=== PATIENT | male | born 1990 | race Caucasian/White ===

== ENCOUNTER 2020-05-07 17:04 | Emergency (ER) | payer BC ==
[2020-05-07 17:11] VITALS: BP 130/87
[2020-05-07] MEDS ORDERED: LIDOCAINE 2% VISCOUS SOLN 15 ML UDCUP PO ONE (17:48)
[2020-05-07] MEDS ORDERED: KETOROLAC TROMETHAMINE 60 MG/2 ML SDV IM ONE (17:48)
--- NOTE | 2020-05-07 17:54 | ER Document Report ---
HPI - HPI Patient complains to provider of: Toothache Time Seen by Provider: 05/07/20 17:40 Pain Level: 3 Notes: 30-year-old male to the emergency department with complaints of posterior right molar tooth ache that began this morning and has not been relieved. He states that he had pain in his tooth last week as well after he broke it. He states that he had made a dentist appointment in [place] where he technically lives but had to come down here for work so he did not go. He states he was not really having any pain earlier in the week and so he was not concerned. However when he woke this morning and had pain it was really uncomfortable. He states that it radiates into his right ear and into the head. He states he has taken Tylenol. He denies any fevers or chills. He denies any drooling. - ROS Systems Reviewed and Negative: Yes All other systems reviewed and negative - CONSTITUTIONAL Constitutional: DENIES: Fever, Chills - EENT EENT: REPORTS: Ear Pain. DENIES: Sore Throat Notes: Dental pain, right ear pain from radiating dental pain - NEURO Neurology: REPORTS: Headache - CARDIOVASCULAR Cardiovascular: DENIES: Chest pain - RESPIRATORY Respiratory: DENIES: Trouble Breathing, Coughing - GASTROINTESTINAL Gastrointestinal: DENIES: Abdominal Pain, Nausea, Patient vomiting, Diarrhea - MUSCULOSKELETAL Musculoskeletal: DENIES: Neck Pain - DERM Skin Color: Normal Skin Problems: None Past Medical History - General Information source: Patient - Social History Smoking Status: Former Smoker Frequency of alcohol use: Occasional Drug Abuse: Marijuana Family History: Reviewed & Not Pertinent Vertical Provider Document - CONSTITUTIONAL Agree With Documented VS: Yes Exam Limitations: No Limitations General Appearance: WD/WN Notes: Mild pain distress, nontoxic in appearance - HEENT HEENT: Atraumatic, Normocephalic, PERRLA - Great Notes: The most posterior right lower molar is broken and tender to palpation. The gum is erythematous around this area but it is not edematous and there is no evidence of dental abscess. There is no Fred's angina. Patient has no voice changes and he is not drooling. His airway is grossly patent. - NECK Neck: Normal Inspection, Supple - RESPIRATORY Respiratory: Breath Sounds Normal, No Respiratory Distress. negative: Rales, Rhonchi, Wheezing - CARDIOVASCULAR Cardiovascular: Regular Rate, Regular Rhythm, No Murmur - GI/ABDOMEN Gastrointestinal: Abdomen Soft, Abdomen Non-Tender - MUSCULOSKELETAL/EXTREMETIES Musculoskeletal/Extremeties: PAULETTE HUMMEL - NEURO Level of Consciousness: Awake, Alert, Appropriate Motor/Sensory: No Motor Deficit, No Sensory Deficit - DERM Integumentary: Warm, Dry Course - Re-evaluation Re-evalutation: 05/07/20 Impression: Right posterior lower molar broken tooth and dental pain. Likely from dental caries. Will send patient home with penicillin VK, Toradol, viscous lidocaine. I have given him information to follow-up with a dentist in [place] as he will be there for most of next week. Patient agrees with the plan. Encouraged to return if worse. Did access [employer] on patient. It appears that he got 90 tablets of Morton at the beginning of April. He denies being on any sort of prescribed medications. - Vital Signs Vital signs: Temp Pulse Resp BP Pulse Ox 97.7 F 69 20 130/87 H 99 05/07/20 17:10 05/07/20 17:10 05/07/20 17:10 05/07/20 17:10 05/07/20 17:10 Discharge - Discharge Clinical Impression: Dental caries, Pain, dental Broken tooth Qualifiers: Encounter type: initial encounter Fracture type: closed Qualified Code(s): S02.5XXA - Fracture of tooth (traumatic), initial encounter for closed fracture Condition: Stable Disposition: HOME, SELF-CARE Instructions: Penicillin V K (OM), Toothache (OM) Additional Instructions: TAKE MEDICINE PRESCRIBED. COMPLETE ANTIBIOTICS. USE VISCOUS LIDOCAINE. RETURN IF WORSENING SYMPTOMS. FOLLOW UP WITH THIS DENTIST IN [place] ON SATURDAY -- CALL THEM AT 8 AM: [employer] [place] Address: [address], [place] [address] Prescriptions: Ketorolac Tromethamine [Toradol 10 mg Tablet] 10 mg PO Q8HP PRN #24 tablet PRN Reason: Penicillin V Potassium [Penicillin Vk 500 mg Tablet] 500 mg PO TID #30 tablet Lidocaine HCl [Xylocaine 2% Viscous Soln 15 ml Udcup] 15 ml MM TID #400 ml
== END 2020-05-07 18:17 | disposition home or self-care (01) ==
LOC: ER 17:04
DX: S02.5XXA Fracture of tooth (traumatic), initial encounter for closed fracture (principal); X58.XXXA Exposure to other specified factors, initial encounter; K02.9 Dental caries, unspecified; K08.89 Other specified disorders of teeth and supporting structures; H92.01 Otalgia, right ear; R51 Headache; F12.10 Cannabis abuse, uncomplicated; Z87.891 Personal history of nicotine dependence
CPT/HCPCS: 99284; 96372; J1885; J3490